=== PATIENT | male | born 1950 | race Caucasian/White ===

== ENCOUNTER 2023-09-15 18:11 | Emergency (ER) | payer OTHER ==
[~2023-09-15] VITALS: Ht 172.7 cm; Wt 83.9 kg
[2023-09-15] MEDS ORDERED: GLUCOTROL (18:20)
[2023-09-15] MEDS ORDERED: HYDRALAZINE (18:20)
[2023-09-15] MEDS ORDERED: GLIPIZIDE (18:20)
[2023-09-15] MEDS ORDERED: LOTREL (18:20)
[2023-09-15] MEDS ORDERED: LIPITOR (18:20)
[2023-09-15] MEDS ORDERED: HUMALOG (18:20)
[2023-09-15] MEDS ORDERED: FURO20TA90 (18:20)
[2023-09-15] MEDS ORDERED: NITROGLYCERIN OINT 1 GM PACKET TP ONE ×2 (18:45→19:10)
[2023-09-15] MEDS ORDERED: IV NORMAL SALINE 250 ML IV ONE (18:47)
[2023-09-15] MEDS ORDERED: IOHEXOL 350 100 ML INFUS..BTL ONE (18:47)
[2023-09-15] MEDS ORDERED: SWABABLE VALVE TRANSFER SET EA MC ONE (18:47)
[2023-09-15 18:54] LABS: BASOPHILS % (AUTO) 0.2 % (0.0-2.0); EOSINOPHILS # (AUTO) 0.1 K/uL (0.0-0.7); HEMATOCRIT 41.4 % (36.7-47.1); HEMOGLOBIN 13.6 g/dL (12.5-16.3); LYMPHOCYTES # (AUTO) 1.4 K/uL (0.8-4.8); LYMPHOCYTES % (AUTO) 16.4 % (20.5-51.5); MEAN CORPUSCULAR HEMOGLOBIN 30.1 uug (23.8-33.4); MEAN CORPUSCULAR HGB CONC 33 g/dL (32.5-36.3); MEAN CORPUSCULAR VOLUME 91.6 fL (73.0-96.2); MONOCYTES # (AUTO) 0.9 K/uL (0.1-1.30); MONOCYTES % (AUTO) 10.4 % (0.0-11.0); NEUTROPHILS # (AUTO) 6.2 K/uL (1.8-8.9); PLATELET COUNT (AUTO) 167 K/uL (152-348); RED BLOOD CELL COUNT(AUTO) 4.52 MIL/uL (4.06-5.63); RED CELL DISTRIBUTION WIDTH 13.7 % (12.1-16.2); WHITE BLOOD COUNT (AUTO) 8.7 K/uL (3.6-10.2)
[2023-09-15 18:55] LABS: DIFFERENTIAL COMMENT 1
[2023-09-15 19:02] LABS: CARBON DIOXIDE 31 mmol/L (21-32); CHLORIDE 110 mmol/L (98-107); CREATININE 2.3 mg/dL (0.6-1.3); POTASSIUM 4.6 mmol/L (3.5-5.1); SODIUM SERUM 143 mmol/L (136-145); UREA NITROGEN, BLOOD 45 mg/dL (7-18)
[2023-09-15 19:10] LABS: GLUCOSE 48 mg/dL (74-106)
[2023-09-15 19:18] LABS: ALANINE AMINOTRANSFERASE 16 U/L (16-63); ALBUMIN 3.2 g/dL (3.4-5.0); ALKALINE PHOSPHATASE 71 U/L (50-136); ASPARTATE AMINOTRANSFERASE 7 U/L (15-37); BILIRUBIN,DIRECT 0.1 mg/dL (0.0-0.2); BILIRUBIN,TOTAL 0.4 mg/dL (0.2-1.0); NT-PRO BNP 505 pg/mL (0-125); TOTAL PROTEIN, SERUM 6.8 g/dL (6.4-8.2)
[2023-09-15 20:05] LABS: *BILIRUBIN,URIN NEGATIVE (NEGATIVE); *CLARITY,URINE CLEAR (CLEAR); *COLOR,URINE YELLOW (YELLOW); *KETONES,URINE NEGATIVE (NEGATIVE); *UROBILINOGEN,URINE 0.2 E.U./dl (NORMAL); LEUKOCYTE ESTERASE ,URINE NEGATIVE (NEGATIVE); NITRITE, URINE NEGATIVE (NEGATIVE); PH,URINE 5.5 (5.0-8.0)
[2023-09-15 20:23] LABS: *BLOOD, URINE NEGATIVE (NEGATIVE); *PROTEIN,URINE 3+ (NEGATIVE); UGLUCOSE 1+ (NEGATIVE)
[2023-09-15 20:27] LABS: RBC,URINE 0-3 /HPF (0-3); WBC,URINE 0-3 /HPF (0-3)
[2023-09-15 20:28] LABS: BACTERIA,URINE NONE SEEN /HPF (NONE SEEN); SQUAMOUS EPITHELIAL CELL,UR NONE SEEN /HPF (NONE SEEN)
[2023-09-15] MEDS ORDERED: hydrALAZINE HCL 20 MG/1 ML VIAL IV ONE (20:45)
[2023-09-15] MEDS ORDERED: ENALAPRILAT DIHYDRATE 1.25 MG/1 ML VIAL IV ONE ×2 (20:45→21:01)
[2023-09-15] MEDS ORDERED: hydrALAZINE HCL 20 MG/1 ML VIAL ONE (21:02)
[2023-09-15 21:14] VITALS: BP 189/73
[2023-09-15 22:27] VITALS: O2SAT 95
== END 2023-09-15 23:34 | disposition short-term general hospital (02) ==
LOC: EDBD 18:13 → ER 18:13
DX: I10 Essential (primary) hypertension (principal); E11.22 Type 2 diabetes mellitus with diabetic chronic kidney disease; R00.1 Bradycardia, unspecified; E11.65 Type 2 diabetes mellitus with hyperglycemia; Z79.899 Other long term (current) drug therapy; Z20.822 Contact with and (suspected) exposure to COVID-19
CPT/HCPCS: 99291; 71250; 96374; 96375; 87426; 80076; 80048; 81001; 82962 ×2; 83880; 85025; 85379; 85730; 84484 ×3; 36415; 93005; 71045; 74176; J3490; J0360; J7050; A4606; A4663; Q9967